=== PATIENT | female | born 1995 | race Caucasian/White ===

== ENCOUNTER 2021-11-26 16:53 | Emergency (ER) | payer OTHER, SELFPAY ==
--- NOTE | ~2021-11-26 | US_ITS ---
EXAMINATION: US PELVIS transabdominal and transvaginal CLINICAL INFORMATION: IUD placement. Pain COMPARISON: None TECHNIQUE: Ultrasound of the pelvis is performed using both transabdominal and transvaginal transducers along with Doppler. Transvaginal imaging is performed due to inadequate visualization transabdominally. FINDINGS: Uterus: The uterus is anteverted and measures 8.3 x 3.2 x 4.9 cm The double wall endometrial thickness is 0.2 mm. There is IUD in place The uterus is smooth in contour and has normal myometrial echogenicity. No visible fibroid. Adnexa: Both ovaries are visualized. There is normal color flow to the adnexa. There is no ovarian torsion. There is no pelvic ascites or fluid collection. There is simple 5.5 x 4.4 x 5.6 cm cyst in left adnexa. Right ovary measures 2.5 x 2.5 x 1.7 cm. With a volume of 5.6 mL Left ovary measures 6.1 x 5.7 x 5.1 cm. With a volume of 93 mL US/US pelvic ovarian doppler IMPRESSION: Large simple cyst in the left adnexa Well-positioned IUD
--- NOTE | ~2021-11-26 | US_ITS ---
EXAMINATION: US PELVIS transabdominal and transvaginal CLINICAL INFORMATION: IUD placement. Pain COMPARISON: None TECHNIQUE: Ultrasound of the pelvis is performed using both transabdominal and transvaginal transducers along with Doppler. Transvaginal imaging is performed due to inadequate visualization transabdominally. FINDINGS: Uterus: The uterus is anteverted and measures 8.3 x 3.2 x 4.9 cm The double wall endometrial thickness is 0.2 mm. There is IUD in place The uterus is smooth in contour and has normal myometrial echogenicity. No visible fibroid. Adnexa: Both ovaries are visualized. There is normal color flow to the adnexa. There is no ovarian torsion. There is no pelvic ascites or fluid collection. There is simple 5.5 x 4.4 x 5.6 cm cyst in left adnexa. Right ovary measures 2.5 x 2.5 x 1.7 cm. With a volume of 5.6 mL Left ovary measures 6.1 x 5.7 x 5.1 cm. With a volume of 93 mL US/US pelvic and transvaginal IMPRESSION: Large simple cyst in the left adnexa Well-positioned IUD
[2021-11-26 17:35] VITALS: BP 134/68; PULSE 90; RESP 18; TEMP 36.4; O2SAT 98; BMI 24.0
--- NOTE | 2021-11-26 22:44 | ED.FEMALEGU ---
HPI - Female Genitourinary General Chief complaint: Recheck/Abnormal Lab/Rx Stated complaint: iud strings cant be located, back pain Time Seen by Provider: 11/26/21 17:39 Source: patient Mode of arrival: ambulatory Limitations: no limitations History of Present Illness HPI Narrative: 25-year-old female presents for inability to find her IUD strings and dysparuenia. She has had this feeling of pain and pressure to the left lower abdomen. States her IUD is approximately 2 years old and has a history of IUD migration. She does not report abnormal vaginal discharge or bleeding, fevers, chills, nausea vomiting or diarrhea. MD elicited complaint: other (Painful intercourse) Pertinent past history: IUD Onset (ago): day(s) Location of symptoms: vaginal Severity: moderate Female Urogenital Radiation: Non-Radiating Severity scale (1-10): 5 Quality of pain: aching Consistency: constant Vaginal discharge: none Vaginal bleeding: none Exacerbating factors: intercourse Relieving factors: other (Pelvic rest) Associated symptoms: denies other symptoms Sexual activity: Yes Patient : No Related Data Previous Rx's Medication Instructions Recorded fluconazole 150 mg tablet 150 mg PO DAILY #1 tab 11/26/21 (Diflucan) Allergies Allergy/AdvReac Type Severity Reaction Status Date / Time No Known Allergies Allergy Verified 11/26/21 17:35 Review of Systems Review of Systems: Constitutional: No Fever, No Chills ENT/Mouth: No Ear Pain, No Hoarseness, No sore throat Eyes: No Eye Pain, No Swelling, No Redness, No Foreign Body Cardiovascular: No Chest Pain, No SOB Respiratory: No Cough, No Dyspnea Gastrointestinal: No Nausea, No Vomiting, No Diarrhea, No abdominal Pain Genitourinary: Painful intercourse, left adnexal pain, No Dysuria, No Hematuria Musculoskeletal: positive joint pain, No Myalgias, No Joint Swelling Skin: No Skin lacerations, No rash Neuro: No Weakness, No Numbness, No Paresthesias, No Loss of Consciousness, No Dizziness, No Headache Psych: No Anxiety/Panic, No Depression Heme/Lymph: no easy bruising, no Lymphadenopathy Endocrine: No Polyuria, No Polydipsia Yes all other systems are reviewed and are negative FOR[facility]LY [facility] Past Medical History Attestation statement: The following information was validated with the patient. Source: old records reviewed Social History Social History Advance Directives: No Advance Directives Information Provided: No Physical Exam Vital Signs: Vital Signs: Last Vital Signs Temp 97.6 F 11/26/21 17:35 Pulse 90 11/26/21 17:35 Resp 18 11/26/21 17:35 BP 134/68 11/26/21 17:35 Pulse Ox 98 11/26/21 17:35 O2 Del Method 11/26/21 17:35 BMI result Body Mass Index 24.0 Appearance: Alert. Oriented X3. No acute distress. Eyes: Pupils equal, round and reactive to light. ENT: Pharynx normal. Neck: Normal inspection. Neck supple. CVS: Normal heart rate and rhythm. Pulses normal. Respiratory: No respiratory distress. Breath sounds normal. Abdomen: Soft and nontender. Genitourinary: IUD strings in the cervical os, IUD removed without difficulty. White clumpy discharge consistent with candidiasis. Os nulliparous. No cervical motion tenderness or adnexal pain noted. External genitalia normal. Skin: Skin warm and dry. Normal skin color. Normal skin turgor. Extremities: No lower extremity edema. Neuro: No motor deficit. No sensory deficit. Course Course Course Narrative: 25-year-old female presents with pain with intercourse, inability to find her IUD strings, and left lower pelvic pain. Pelvic ultrasound completed while patient was in the emergency department waiting room. IUD is in place. I did discuss this finding with the patient and she would like her IUD removed because of painful intercourse. I did discuss the finding of the left adnexal cyst, she was aware that she had this from prior studies. Pelvic exam is within normal limits with the exception of vaginal discharge consistent with candidiasis. No cervical motion tenderness or adnexal tenderness on bimanual palpation. 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 IUD was removed without difficulty. Patient does understand that she has high risk for at this time. Will treat with Diflucan, repeat dose in 3 days from now. Patient agrees to follow-up with her obstetrics gyn and her tapestry as needed. Patient verbalized understanding of and agrees plan of care discharge home. Verbalized understanding of signs and symptoms indicating need for emergent intervention. MDM - Female Genitourinary MDM Narrative Medical decision making narrative: Candidiasis, IUD displacement, ovarian cyst, ectopic , Differential Diagnosis Differential diagnosis: Likely vaginitis and ruptured ovarian cyst Medical Records Attestation: I reviewed the patient's medical records. Imaging Data Pelvic ultrasound\: Attestation: I personally reviewed and interpreted this imaging study as follows: Radiologist's impression: CLINICAL INFORMATION:? IUD placement. Pain COMPARISON: None TECHNIQUE: Ultrasound of the pelvis is performed using both transabdominal and transvaginal transducers along with Doppler. Transvaginal imaging is performed due to inadequate visualization transabdominally. FINDINGS: Uterus: The uterus is anteverted and measures 8.3 x 3.2 x 4.9 cm The double wall endometrial thickness is 0.2 mm. There is IUD in place The uterus is smooth in contour and has normal myometrial echogenicity. ? No visible fibroid. Adnexa: Both ovaries are visualized. There is normal color flow to the adnexa. There is no ovarian torsion.? There is no pelvic ascites or fluid collection. There is simple 5.5 x 4.4 x 5.6 cm cyst in left adnexa. Right ovary measures 2.5 x 2.5 x 1.7 cm. With a volume of 5.6 mL Left ovary measures 6.1 x 5.7 x 5.1 cm. With a volume of 93 mL US/US pelvic and transvaginal IMPRESSION: Large simple cyst in the left adnexa Well-positioned IUD Discharge Plan Discharge Clinical Impression: Pelvic pain, Encounter for IUD removal, Candidiasis Patient Disposition: Home, Self-Care Instructions: Yeast Infection (ED), Pelvic Pain (ED), Removal of Control Implant (DC) Additional Instructions: You were evaluated for pelvic pain during intercourse. We removed your IUD without difficulty. You have a left adnexal simple cyst. Please follow-up with your obstetrics gyn. We are treating you for yeast infection. We gave you your 1st dose of Diflucan while you were in the emergency department. Please take 2nd dose in 3 days from now. Please use control and condoms to prevent as we removed your IUD. Return to the emergency department for any new, concerning, worsening symptoms. . Prescriptions: New fluconazole [Diflucan] 150 mg tablet 150 mg PO DAILY Qty: 1 0RF Rx Instructions: Take on 11/29/2021, 1st dose given on 11/26/2021 Referrals: Adilson Desai MD [Physician] - (IUD, left adnexal cyst) Interventions: ED Discharge Assessment Last Done: 11/26/21 23:36 Discharge Date/Time: 11/26/21 23:38
[2021-11-26] MEDS: Fluconazole 150 MG TABLET PO (23:35)
== END 2021-11-26 23:38 | disposition home or self-care (01) ==
PROVIDERS: Emergency Provider Internal Medicine; PCP Internal Medicine
DX: M54.50 Low back pain, unspecified (principal); R10.2 Pelvic and perineal pain; B37.3 Candidiasis of vulva and vagina; Z30.432 Encounter for removal of intrauterine contraceptive device; Z79.899 Other long term (current) drug therapy
CPT/HCPCS: 76830; 76856; 93975; 99282; 99284

== ENCOUNTER → 2021-12-23 12:02 | Outpatient (BNVA) | payer OTHER, SELFPAY | PROVIDERS: PCP Internal Medicine; Visit Provider Obstetrics & Gynecology | DX: Z32.02 Encounter for pregnancy test, result negative (principal); N83.209 Unspecified ovarian cyst, unspecified side | CPT/HCPCS: 81025 ==

== ENCOUNTER 2022-02-10 12:55 | Outpatient (REF) | payer OTHER, SELFPAY ==
--- NOTE | ~2022-02-10 | US_ITS ---
EXAMINATION: US PELVIS CLINICAL INFORMATION: Unspecified ovarian cyst, left lower quadrant pain. IUD removed 12/23/2021. COMPARISON: 11/26/2021. TECHNIQUE: Ultrasound of the pelvis is performed using both transabdominal and transvaginal transducers along with Doppler. Transvaginal imaging is performed due to inadequate visualization transabdominally. FINDINGS: The uterus is heterogeneous and measures 6.9 x 3.1 x 3.9 cm. No discrete fibroids. Nabothian cyst identified. Endometrial thickness 0.5 cm. Right ovary is unremarkable and measures 2.7 x 1.4 x 1.8 cm, volume 3.6 mL. Left ovary measures 3.4 x 1.8 x 2.2 cm, volume 7.1 mL. Left ovarian cyst measures 1.7 x 1.6 x 1.6 cm, likely simple. Previous study demonstrated 5.5 x 4.4 x 5.5 cm left adnexal cyst. US/US pelvic and transvaginal IMPRESSION: 1. Left ovarian 1.7 cm cyst, previously 5.5 cm left adnexal cyst. 2. Unremarkable right ovary. 3. No discrete fibroids. 4. No significant free fluid. 5. Endometrial thickness 0.5 cm.
== END 2022-02-10 12:56 | disposition home or self-care (01) ==
LOC: HO.US 12:55
PROVIDERS: Visit Provider Obstetrics & Gynecology
DX: N83.209 Unspecified ovarian cyst, unspecified side (principal)
CPT/HCPCS: 76830; 76856

== ENCOUNTER 2023-04-20 15:35 | Outpatient (REF) | payer OTHER, SELFPAY | END 2023-04-20 15:36 | disposition home or self-care (01) | LOC: HO.LNP 15:35 | PROVIDERS: Visit Provider Obstetrics & Gynecology | DX: Z01.419 Encounter for gynecological examination (general) (routine) without abnormal findings (principal) | CPT/HCPCS: 88142 ==

== ENCOUNTER 2023-04-20 15:35 | Outpatient (AMB) | payer OTHER, SELFPAY ==
--- NOTE | 2023-04-20 15:52 | A.OFFVIS_ITS ---
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 No complaints. 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 Sexually active: Yes Sexual orientation: Straight/Heterosexual Gender identity: Female Female Reproductive History Menstrual Age of Menarche: 10 Date of last menstrual period: 04/03/23 Total pregnancies: 0 Review of Systems Const All systems reviewed & are unremarkable except as noted in HPI and below Card Reports as per HPI Resp Reports as per HPI GI Reports as per HPI and Reports no additional complaints Reports as per HPI Physical Exam Vital Signs: BMI result Body Mass Index 22.3 Const General: cooperative, healthy appearing and comfortable Chest Chest palpation & inspection: normal inspection of the chest and normal palpation of entire chest wall Breast/axilla inspection: normal inspection of the breasts and normal inspection of the axillae Breast/axilla palpation: normal palpation of the breasts, normal palpation of the axillae and no axillary lymphadenopathy Resp Effort & Inspection: normal respiratory effort Auscultation: clear to auscultation bilaterally Percussion: percussion normal Cardio Palpation: normal PMI Rate: regular rate Rhythm: regular rhythm Heart sounds: no murmurs and no rubs Peripheral pulses: Peripheral pulses 2+ throughout GI Inspection: Yes normal to inspection Palpation (GI): Soft to palpation, nontender, no guarding, not rigid and No hepatosplenomegaly present Percussion: Yes normal to percussion Auscultation: normal bowel sounds Rectal Exam - Female: deferred General: Yes bladder normal to palpation External Female Exam: No lesion Speculum Exam - Vagina: normal appearance of the vagina, normal palpation, normal vaginal discharge and not erythematous Speculum Exam - Cervix: normal appearance of the cervix and normal palpation Bimanual exam- vagina & uterus: normal bimanual exam, normal palpation, uterine size normal, bladder normal to palpation, consistency normal and normal palpation Bimanual Exam- Adnexa, other: normal adnexae, no masses and no tenderness Assessment & Plan Assessment & Plan (1) Well woman exam: Code(s): Z01.419 - Encounter for gynecological examination (general) (routine) without abnormal findings Plan: Pap smear taken. Counseled the patient about the recommended dietary allowance of 1000 mg of C alcium & 600 IU of vitamin D. The patient was instructed to perform monthly self-breast exams , to call for any changes in menstrual patterns and to schedule an annual exam in a year; all questions answered and the patient verbalized understanding. Coding Level of Care Code Est Pt Prev Care 18-39y(39948) Diagnoses Well woman exam Z01.419
[2023-04-20 15:54] VITALS: BP 88/58; BMI 22.3
== END 2023-04-20 16:08 | disposition home or self-care (01) ==
PROVIDERS: PCP Internal Medicine; Visit Provider Obstetrics & Gynecology
DX: Z01.419 Encounter for gynecological examination (general) (routine) without abnormal findings (principal)
CPT/HCPCS: 99395

== ENCOUNTER 2024-07-04 09:34 | Outpatient (AMB) | payer OTHER, SELFPAY ==
[2024-07-04 10:28] VITALS: BP 100/66; PULSE 88; RESP 20; TEMP 37; O2SAT 99; BMI 22.8
--- NOTE | 2024-07-04 10:28 | AM.OFFWIN_ITS ---
Intake Vital Signs 07/04/24 10:28 Height 5 ft Weight 117 lb BMI 22.8 BP 100/66 Blood Pressure Location Lt brachial Position Sitting Respiration 20 Pulse 88 Pulse Source Pulse Oximeter Temp 98.6 F Temp Source Oral Pulse Oximetry (%) 99 Oxygen Delivery Method Room Air Intake Visit Reasons: EP Flu symptoms Intake Note: Pt is here today for a walk in visit. Pt c/o body aches, cough, chills, fever no appetite. Patient Tobacco Use Status: Current someday Tobacco user Allergies No Known Allergies [No Known Allergies*] Allergy (Unverified 07/04/24 10:32) Do you need a note to return to daycare/school/sports/work: Yes HPI HPI Comments History of Present Illness Details History - The patient is a 28-year-old female pr esenting with suspected influenza. - Symptoms started on Wednesday, with a n otable fever that initially reached 101.7?F, controlled with Tylenol. Sweating in the extremities persists in the absence of fever. - Gastrointestinal tolerance is limited; Gatorade is retained, but water induces vomiting. - The patient experienced one bowel move ment today, with noted constipation since illness onset. - The patient reports a cough that somet imes yields sputum, worsened in a supine position. - no wheezing or shortness of breath not ed. - Only minor nasal congestion noted with out other upper respiratory symptoms. - The patient did not receive an influen za vaccine this year, marking the first suspected influenza bout since middle school. - The illness began approximately 72 sully rs prior, when the patient also started feeling systemic symptoms. Physical Exam General: Cooperative, healthy appearing, comfortable and no acute distress Orientation/consciousness: Patient oriented x3 Limitations: No limitations Head: Normal to inspection Ears: Hearing grossly normal bilaterally, external ears normal and TM's normal bilaterally Nose: Normal external nose present, Normal nares present and No nasal discharge present Face and sinus: Normal facial exam and Yes sinuses nontender Mouth: Normal oral and palatal mucosa present and moist mucous membranes Throat: Yes tonsils normal, Yes uvula midline. Posterior oropharynx erythema Eyes: Appearance normal, both eyes and all related structures Neck: Normal visual inspection Respiratory: Clear to auscultation bilaterally. Normal respiratory effort, able to speak in complete sentences, Actively coughing, no respiratory distress, not tachypneic, no tripod positioning and no use of accessory muscles Cardiovascular: Regular rate and rhythm. Normal S1 and S2 Skin: No rashes or lesions noted Neuro: Patient oriented x3 Extremities: Normal to inspection and Yes no clubbing, cyanosis or edema, but legs appear discolored than normal PFSH Family History Maternal Grandmother Breast CA Social History (Updated 04/20/23 @ 15:57 by Pati Robledo CMA) Household Members: None Housing: House Alcohol intake: current Alcohol intake frequency: holidays/special occasions only Patient Tobacco Use Status: Current someday Tobacco user Tobacco use type: Cigarette Cigarettes Per Day: 1 Substance Use Type: Marijuana Current occupational status: employed 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 Flu, Covid and RSV testing sent. The likely diagnosis in this case is influenza, as indicated by the presented symptoms and absence of vaccination this season. Given the timing of the symptom onset and the nature of oseltamivir?s side effects, it was recommended to focus on hydration and relief of symptoms, rather than antiviral treatment. The patient was instructed to maintain adequate hydration with electrolyte fluids and consume a bland diet consistent with the BRAT regimen. Documentation for work leave was arranged, depending on test outcomes. Further management will hinge on test results. Patient was informed and verbally consented to the use of an ambient scribe for clinic note documentation during this visit Orders: Orders SARS-CoV2/FLU/RSV Today R09.89 - Other specified symptoms and signs involving the circulatory and respiratory systems Coding Level of Care Code New Pt Level 3 (04647) Diagnoses Influenza-like illness J11.1
--- OUTSIDE RECORDS SUMMARY | 2024-07-04 10:43 | XMS_ITS | Data Portability ---
Author Organization [facility], [address] Address [address] [place] [id number] Assessment No assessment recorded. Plan of Treatment Reminders Order Date Submit Date Provider Last Modified By Organization Details Last Modified Time Details Appointments None recorded. Lab None recorded. Referral None recorded. Procedures None recorded. Surgeries None recorded. Imaging XR, sacrum + coccyx, 2 or more view 2022 023 [email or web address] [facility], [address] [place], [address], 3 17:07:02 XR, sacrum + coccyx, 2 or more view 2022 023 [email or web address] [facility], [address] [place], [address], 3 17:07:02 Medication Orders ibuprofen 800 mg tablet 2022 023 [email or web address] [facility] #[id number], [address] [facility] [place], [address], 3 17:05:32 Patient TargetsNo targets recorded. Patient Instructions Encounter Date Encounter Id Patient Instructions Last Modified By Organization Details Last Modified Time 05/25/2022 [id number] getting back to normal after low back pain: care instructions denis Not available 05/25/2022 16:27:16 - Patient was informed of coccydynia. - Discussed about avoiding to sit on hard surfaces. patient was provided with a prescription of anti-inflammatory , muscle relaxants along with pain medication. - Indications, contraindications and precautions were discussed with the patient patient has been educated about follow-up to ensure complete resolution. - Discussed about indications of UC/ ED visit. - Conservative and home management was discussed. - Advised about application of ice. lorenzoErick Not available 05/25/2022 16:49:31 Reason for Referral None Reported. Results Created Date Observation Date Name Description Value Unit Range Abnormal Flag Note LastModifiedBy Organization Detail LastModifiedTime 05/25/19 23 05/25/2022 XR, sacru m + coccy x, 2 or more view No observ ation record ed. [email or web address] [facility] [address] [place], [address], 05/25/2022 23:54:34 05/25/19 23 05/25/2022 XR, sacru m + coccy x, 2 or more view No observ ation record ed. [facility] [address] [place], [address], 05/25/2022 23:54:35 Result Notes None recorded. Problems No Known Problems Procedures Surgical History None recorded. Imaging Results Imaging Date Name Status LastModified by [facility] Details LastModified Time 05/25/2022 XR, sacrum + coccyx, 2 or more view completed [email or web address] [facility] [address] [place], [address], 05/25/2022 23:54:34 05/25/2022 XR, sacrum + coccyx, 2 or more view completed [email or web address] [facility] [address] [place], [address], 05/25/2022 23:54:35 Procedure Notes None recorded. Medical Equipment None Reported. Allergies No known drug allergies Medications Name Sig Start Date Stop Date Status Note LastModified by Organization Details LastModified Time ibuprofen 800 mg tablet Take 1 tablet 3 times a day by oral route with meals for 7 days. 2022 active Not Available Not Available Not Avai lable fluconazole 150 mg tablet TAKE 1 TABLET BY MOUTH ONCE FOR 1 DOSE ON 022. 05/25 completed Not Available Not Available Not Available Vitals Date Recorded Body height Body mass index (BMI) Body weight Body temperature Respiratory rate Oxygen saturation Oxygen saturation in Arterial blood by Pulse oximetry Heart rate Systolic blood pressure Diastolic blood pressure Provider Name and Address Organization Details Last Updated DateTime 3 152.4 cm 24.4 kg/m2 05050.0 5 g 97.9 [degF] 18 /min 99 % 99 % 77 /min 114 mm[Hg] 71 mm[Hg] XAVI Alexander [facility] 16:13:13 Social History Question Answer Notes LastModified by Ad Dynamoizat ion Details LastModified Time Tobacco Smoking Status Never Smoker [facility] 05/25/2022 16:11:44 What Is Your Level Of Alcohol Consumption? Occasional Information not available 05/25/2022 Are You Currently Employed? Yes Information not available 05/25/2022 Which Illicit Or Recreational Drugs Have You Used? Marijuana Information not available 05/25/2022 Have You Had Direct Contact, Or Contact During Intimacy, With Monkeypox Rash, Scabs, Or Body Fluids From A Person With Monkeypox? No Information not available 05/25/2022 Do You Use Any Illicit Or Recreational Drugs? Yes Information not available 05/25/2022 Have You Recently Traveled Abroad? No Information not available 05/25/2022 Are You Currently In School? No Information not available 05/25/2022 Sex: Unknown Functional Status None recorded. Mental Status None recorded. Family History Relationship Description Onset Age of this Age Resolved Age Notes LastModified by Organization Details LastModified Time Unspecified Relation Heart disease Not available 05/25 16:11:32 Medical History No medical history recorded. Gynecological HistoryNo gynecological history recorded. Obstetrics History GPAL:G 0 P 0 0 0 0 Immunizations Vaccine Type Date Status Note Provider Nam e and Address Organization Details Recorded Time Tdap 01/02/2016 [facility] 05/25/2022 16:11:06 Influenza, MDCK, quadrivalent, PF 05/25/2018 completed XAVI hlyton [place] - [facility] 05/25/2022 16:11:06 Past Encounters Encounter ID Performer Location Encounter Start Date Encounter Closed Date Diagnosis/Indication Diagnosis SNOMED-CT Code Diagnosis ICD10 Code Diagnosis Note [id number] [place] Zendejas [place] [address] [address] 05/25/2022 15:36:45 05/25/2022 17:07:02 Contusion of lower back 809712689 S30.0XXA Health Concerns Section Related Observation LastModified by Organization Detai ls LastModified Time None Recorded Concern Status LastModified by Organization Details LastModified Time None Recorded Advance Directives Directive None Recorded Payers Encounter Date Sequence Insurance Name Policy Number Policy Vizcarra Covered Member ID Vizcarra Member ID Guarantor Name 05/25/[address] [place] [address] [id number] Ashly Strange [id number] Ashly Strange Notes Date Note Type Note Provider Name and Address Organization Details Recorded Time 05/25/2022 text/html Back Pain/Injury UCReported bypatient.Notes:H ad a hard fall yesterday snow boarding on her buttocks . now painful to sit . hurts at the tailbone. Blair Zendejas NP [address] [place], [address], [place] - [facility] 05/25/2022 17:06:31 OBGyn Episode No OBEpisode recorded.
== END 2024-07-04 10:58 | disposition home or self-care (01) ==
PROVIDERS: PCP Internal Medicine; Visit Provider Physician Assistant
DX: J11.1 Influenza due to unidentified influenza virus with other respiratory manifestations (principal)

== ENCOUNTER 2024-07-04 09:34 | Outpatient (REF) | payer OTHER, SELFPAY ==
[2024-07-04 14:55] LABS: Influenza A PCR POSITIVE (Negative); Influenza B PCR NEGATIVE (Negative); Resp Syncy Virus RNA Qual PCR NEGATIVE (Negative); SARS COV2 PCR INHOUSE NEGATIVE (Negative)
== END 2024-07-04 09:35 | disposition home or self-care (01) ==
LOC: HO.LAB 09:34
PROVIDERS: PCP Internal Medicine; Visit Provider Physician Assistant
DX: J11.1 Influenza due to unidentified influenza virus with other respiratory manifestations (principal); R09.89 Other specified symptoms and signs involving the circulatory and respiratory systems
CPT/HCPCS: 0241U

== ENCOUNTER 2024-07-11 09:14 | Outpatient (AMB) | payer OTHER, SELFPAY ==
--- NOTE | 2024-07-11 09:21 | A.OFFVIS_ITS ---
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 No complaints. 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 Sexual orientation: Straight/Heterosexual Gender identity: Female Female Reproductive History Menstrual Age of Menarche: 10 Duration of menses: 3-5 days Date of last menstrual period: 06/13/24 Total pregnancies: 0 Date of last pap smear: 04/20/23 (negative pap smear) History of abnormal pap smear: No Review of Systems Const All systems reviewed & are unremarkable except as noted in HPI and below Card Reports as per HPI Resp Reports as per HPI GI Reports as per HPI and Reports no additional complaints Reports as per HPI Physical Exam Vital Signs: Last Vital Signs BP 102/68 07/11/24 09:27 BMI result Body Mass Index 22.8 Const General: cooperative, healthy appearing and comfortable Chest Chest palpation & inspection: normal inspection of the chest and normal palpation of entire chest wall Breast/axilla inspection: normal inspection of the breasts and normal inspection of the axillae Breast/axilla palpation: normal palpation of the breasts, normal palpation of the axillae and no axillary lymphadenopathy Resp Effort & Inspection: normal respiratory effort Auscultation: clear to auscultation bilaterally Percussion: percussion normal Cardio Palpation: normal PMI Rate: regular rate Rhythm: regular rhythm Heart sounds: no murmurs and no rubs Peripheral pulses: Peripheral pulses 2+ throughout GI Inspection: Yes normal to inspection Palpation (GI): Soft to palpation, nontender, no guarding, not rigid and No hepatosplenomegaly present Percussion: Yes normal to percussion Auscultation: normal bowel sounds Rectal Exam - Female: deferred General: Yes bladder normal to palpation External Female Exam: No lesion Speculum Exam - Vagina: normal appearance of the vagina, normal palpation, normal vaginal discharge and not erythematous Speculum Exam - Cervix: normal appearance of the cervix and normal palpation Bimanual exam- vagina & uterus: normal bimanual exam, normal palpation, uterine size normal, bladder normal to palpation, consistency normal and normal palpation Bimanual Exam- Adnexa, other: normal adnexae, no masses and no tenderness Assessment & Plan Assessment & Plan (1) Well woman exam: Code(s): Z01.419 - Encounter for gynecological examination (general) (routine) without abnormal findings Category: Medical Plan: Pap smear not indicated this year. Counseled the patient about the recommended dietary allowance of 1000 mg of Calcium & 600 IU of vitamin D. The patient was instructed to perform monthly self-breast exams and to schedule an annual exam in a year; All questions answered and the patient verbalized understanding. Instructed the patient to schedule annual exam in a year Coding Level of Care Code Est Pt Level 3 (76153) Est Pt Prev Care 18-39y(71902) Diagnoses Well woman exam Z01.419
[2024-07-11 09:27] VITALS: BP 102/68; BMI 22.8
--- OUTSIDE RECORDS SUMMARY | 2024-07-11 10:10 | XMS_ITS | Data Portability ---
Author Organization [facility], [address] Address [address] [place] [phone] Assessment No assessment recorded. Plan of Treatment Reminders Order Date Submit Date Provider Last Modified By Organization Details Last Modified Time Details Appointments None recorded. Lab None recorded. Referral None recorded. Procedures None recorded. Surgeries None recorded. Imaging XR, sacrum + coccyx, 2 or more view 2022 023 [email or web address] [facility], [address] [place], [address], 3 17:07:02 XR, sacrum + coccyx, 2 or more view 2022 023 [email or web address] [facility], [address] [place], [address], 3 17:07:02 Medication Orders ibuprofen 800 mg tablet 2022 023 [email or web address] [facility]acy #[id number], [address] [facility] [place], [address], 3 17:05:32 Patient TargetsNo targets recorded. Patient Instructions Encounter Date Encounter Id Patient Instructions Last Modified By Organization Details Last Modified Time 05/25/2022 [id number] getting back to normal after low back [...] record ed. [facility] [address] [place], [address], 05/25/2022 23:54:34 05/25/19 23 05/25/2022 XR, sacru m + coccy x, 2 or more view No observ ation record ed. [email or web address] [facility] [address] [place], [address], 05/25/2022 23:54:35 Result Notes None recorded. Problems No Known Problems Procedures Surgical History None recorded. Imaging Results Imaging Date Name Status LastModified by [facility] Details LastModified Time 05/25/2022 XR, sacrum + coccyx, 2 or more view completed [email or web address] [facility] [address] [place], [address], 05/25/2022 23:54:34 05/25/2022 XR, sacrum + coccyx, 2 or more view completed [facility] [address] [place], [address], 05/25/2022 23:54:35 Procedure Notes None recorded. Medical [...] Updated DateTime 3 152.4 cm 24.4 kg/m2 98957.0 5 g 97.9 [degF] 18 /min 99 % 99 % 77 /min 114 mm[Hg] 71 mm[Hg] XAVI Alexander [facility] 16:13:13 Social History Question Answer Notes LastModified by [employer] Details LastModified Time Tobacco Smoking Status [...] Influenza, MDCK, quadrivalent, PF 05/25/2018 completed XAVI hylton [place] - [facility] 05/25/2022 16:11:06 Past Encounters Encounter ID Performer Location Encounter Start Date Encounter Closed Date Diagnosis/Indication Diagnosis SNOMED-CT Code Diagnosis ICD10 Code Diagnosis Note [id number] Blair Zendejas NP [address] [address] 05/25/2022 15:36:45 05/25/2022 17:07:02 Contusion of lower back [id number] S30.0XXA Health Concerns Section Related Observation LastModified by Organization Detai ls LastModified Time None Recorded Concern Status LastModified by Organization Details LastModified Time None Recorded Advance Directives Directive None Recorded Payers Encounter Date Sequence Insurance Name Policy Number Policy Vizcarra Covered Member ID Vizcarra Member ID Guarantor Name 05/25/[address] [place] [address] [id number] Ashly Strange [id number] Ashly Strange Notes Date Note Type Note Provider Name and Address Organization Details Recorded Time 05/25/2022 text/html Back Pain/Injury UCReported bypatient.Notes:H ad a hard fall yesterday snow boarding on her buttocks . now painful to sit . hurts at the tailbone. Blair Zendejas NP [address] [place], [address], [place] - [facility] 05/25/2022 17:06:31 OBGyn Episode No OBEpisode recorded.
== END 2024-07-11 10:03 | disposition home or self-care (01) ==
LOC: HO.HWS 09:14
PROVIDERS: PCP Internal Medicine; Visit Provider Obstetrics & Gynecology
DX: Z01.419 Encounter for gynecological examination (general) (routine) without abnormal findings (principal)
CPT/HCPCS: 99395; 99459

== ENCOUNTER → 2024-07-11 09:14 | Outpatient (BNVA) | payer OTHER, SELFPAY | PROVIDERS: PCP Internal Medicine; Visit Provider Obstetrics & Gynecology ==

== ENCOUNTER 2025-03-29 15:06 | Emergency (ER) | payer OTHER, SELFPAY ==
--- NOTE | ~2025-03-29 | XR_ITS ---
EXAMINATION: XR CHEST CLINICAL INFORMATION: left rib/chest pain pluerisy COMPARISON: None available. TECHNIQUE: PA and lateral views FINDINGS: Hyperinflation. No consolidation, pleural effusion or pneumothorax. Cardiomediastinal silhouette size is normal. Osseous structures are intact.. Mild S-shaped curvature of the upper thoracic spine. XR/XR chest 2V IMPRESSION: No acute airspace disease. Electronically signed by: Derian Rivera MD 03/29/2025 03:50 PM EST
[2025-03-29 15:08] VITALS: BP 143/72; PULSE 85; RESP 20; TEMP 36.4; O2SAT 100; BMI 24.2
--- NOTE | 2025-03-29 15:11 | ECG_ITS ---
Test Reason : cp Blood Pressure : */* mmHG Vent. Rate : 73 BPM Atrial Rate : 73 BPM P-R Int : 156 ms QRS Dur : 74 ms QT Int : 390 ms P-R-T Axes : 79 74 61 degrees QTcB Int : 429 ms Normal sinus rhythm Normal ECG No previous ECGs available Referred By: Malcolm Cota Electronically Signed By: EM FORTUNE
--- NOTE | 2025-03-29 15:14 | ED_ITS ---
HPI - General Adult General Chief complaint: Back Pain/Injury Stated complaint: Back Pain Time Seen by Provider: 03/29/25 16:25 Source: patient Mode of arrival: ambulatory Limitations: no limitations History of Present Illness ED Provider: Malcolm Cota HPI narrative: 29 yold female healthy presents to the ED for left chest/rib/torso pain that is worse on movememnt ever since doing an awkard movement yesterday. patient states she was walkinhg her dog and the dog ran fast and pulled patient which caused awkward movememnt. Patient denies any control use, leg swelling, calf pain, coughing up blood, recent travel, recent trauma recent surgery Related Data Previous Rx's ?Medication ?Instructions ?Recorded cyclobenzaprine 10 mg tablet 10 mg PO BEDTIME PRN musc le spasm 03/29/25 #10 tabs naproxen 500 mg tablet 500 mg PO BID PRN pain #14 t abs 03/29/25 Allergies Allergy/AdvReac Type Severity Reaction Status Date / Time No Known Allergies (No Known Allergy Verified 03/29/25 15:12 Allergies*) Review of Systems 2 Review of Systems: Left rib left chest pain that is worse on movement Yes all other systems are reviewed and are negative [facility] Family History Family History Maternal Grandmother Breast CA Social History Social History Household Members: None Housing: House Alcohol intake: current Alcohol intake frequency: holidays/special occasions only Patient Tobacco Use Status: Current someday Tobacco user Tobacco use type: Cigarette Cigarettes Per Day: 1 Substance Use Type: Marijuana Advance Directives: No Advance Directives Information Provided: No Do you have a plan to hurt others: No Plan Current occupational status: employed 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 Sexual orientation: Straight/Heterosexual Gender identity: Female Physical Exam ED Vital Signs: Vital Signs - 24 hr 03/29/25 15:08 Temperature 97.5 F Pulse Rate 85 Respiratory Rate 20 Blood Pressure 143/72 H Pulse Oximetry 100 Oxygen Delivery Method Room Air BMI result Body Mass Index 24.2 Const General: cooperative, healthy appearing, comfortable, no acute distress, well developed, alert, awake and Physically active Orientation/consciousness: patient oriented x3 HENMT Head: Yes normal to inspection, Yes No palpable skull fracture present, Yes normocephalic and Yes atraumatic Eyes General: appearance normal, both eyes and all related structures Neck Neck: Yes normal visual inspection, Yes no lymphadenopathy, Yes no meningeal signs, Yes trachea midline, Yes supple, No anterior neck swelling and No tender Chest Chest palpation & inspection: normal inspection of the chest Chest/axillae images: 2 1. Positive for tenderness on palpation. Positive for pain on range of motion of upper extremity and left upper torso. Negative for ecchymosis, rash, erythema, deformity, lesions, nipple discharge, breast mass, breast swelling, breasts redness, or lymphadenopathy. 2. Positive for tenderness on palpation. Positive for pain on range of motion of upper extremity and left upper torso. Negative for ecchymosis, rash, erythema, deformity, lesions, nipple discharge, breast mass, breast swelling, breasts redness, or lymphadenopathy. 3. Positive for tenderness on palpation. Positive for pain on range of motion of upper extremity and left upper torso. Negative for ecchymosis, rash, erythema, deformity, lesions, nipple discharge, breast mass, breast swelling, breasts redness, or lymphadenopathy. Resp Effort & Inspection: normal respiratory effort and able to speak in complete sentences Auscultation: clear to auscultation bilaterally Cardio Jugular venous distension: no JVD Heart sounds: S1 normal heart sound present and S2 normal heart sound present GI Inspection: Yes normal to inspection Palpation (GI): Soft to palpation, not firm, nontender, no guarding and not rigid General: Yes no CVA tenderness Back/Spine/Pelvis Back: no CVA tenderness and No back tenderness Skin General skin exam: no rashes or lesions noted, elasticity normal and turgor normal Neuro General: patient oriented x3, gait normal, tone normal, moves all extremities, Normal light touch and pain sensation, no meningeal signs, no focal motor deficits, CN's II-XI intact bilaterally and normal sensation to monofilament Extrem General: Yes normal to inspection, Yes full ROM and Yes capillary refill normal Psych Appearance: grossly normal, well kempt and not disheveled Course Course Course Narrative: RME: 29-year-old female presents to ED for left upper rib pain since yesterday with pleurisy in the worse on movement. Patient states pain was exacerbated or walking her dog who moved when caused patient to twist awkwardly exacerbating the left rib pain. Patient denies any breast swelling, nipple discharge, recent long travel, recent surgery history of blood clots. Labs ordered Medical Decision Making Medical Decision Making [facility] Narrative: 29-year-old female presents to ED for left rib chest back pain that is worse on movement since yesterday due to dog pulling her while walking caused her to move awkwardly of left torso. Due to pleurisy D-dimer was sent which was negative. Perc score is 0. EKG nondiagnostic. Troponin negative. Heart score is 0. Not suspecting PE, NC, CHF, pericarditis, myocarditis, pneumothorax, thorax, or any other life threat etiology. Patient explained worrisome signs informed return to the ED immediately Differential Diagnosis Differential Diagnoses: The differential diagnosis associated with the presentation includes (PE, Pneumothorax, muscple strain, constchondiritis) Admission/Observation Consideration of admission/observation: Escalation of care including admission/observation considered Lab Data [facility] Lab Attestation statement: I reviewed the patient's lab results. 03/29/25 15:30 03/29/25 15:30 Labs: Lab Results 03/29/25 Range/Units 15:30 WBC 8.8 (4.8-10.8) X10*3/uL RBC 4.67 (4.20-5.50) X10*6/uL Hgb 13.6 (12.0-16.0) g/dl Hct 40.9 (37.0-47.0) % MCV 87.6 (80.0-98.0) fL MCH 29.1 (27.0-33.0) pg MCHC 33.3 (31.0-35.0) g/dl RDW 12.4 (11.0-16.0) % Plt Count 309 (160-400) X10*3/uL MPV 10.3 (9.4-12.3) fL Immature Gran % (Auto) 0.2 (0.0-0.4) % Neut % (Auto) 62.7 (45-73) % Lymph % (Auto) 29.2 (20-40) % [place] % (Auto) 6.2 (2-11) % Eos % (Auto) 1.1 (0-4) % Baso % (Auto) 0.6 (0-2) % Lymph # (Auto) 2.6 (1.2-4.9) X10*3/uL [place] # (Auto) 0.6 (0.1-1.2) X10*3/uL Eos # (Auto) 0.1 (0.0-0.4) X10*3/uL Baso # (Auto) 0.1 (0.0-0.2) X10*3/uL Abs Immat Gran (auto) 0.02 (0.00-0.03) X10*3/uL Absolute Neuts (auto) 5.5 (2.0-8.3) x10*3/uL Absolute Nucleated RBC 0.000 (0.0-0.012) X10*3/uL Nucleated RBC % (auto) 0.0 (0.0-0.2) /100WBC PT 11.9 (11.2-13.5) SEC INR 1.0 (0.9-1.1) APTT 31.7 (26.7-34.1) SEC D-Dimer High Sensitivty < 150 NG/ML Sodium 141 (135-145) mmol/L Potassium 3.4 (3.3-5.1) mmol/L Chloride 107 (96-108) mmol/L Carbon Dioxide 25 (22-29) mmol/L Anion Gap 12 (12-20) BUN 8 L (9-16) mg/dL Creatinine 0.74 (0.5-1.4) mg/dL Estim Creat Clear Calc 87.3 Estimated GFR > 60 Random Glucose 117 H (60-115) mg/dL Calcium 9.6 (8.4-10.2) mg/dL Total Bilirubin 0.4 (0.0-1.0) mg/dL AST 21 (5-31) U/L ALT 13 (0-31) U/L Alkaline Phosphatase 46 (39-117) U/L Troponin I High Sens < 2.7 (<3.5-17.0) ng/L Total Protein 7.0 (6.5-8.0) g/dL Albumin 4.7 (3.5-5.0) g/dL Beta HCG, Quant < 2 mIU/mL Urine Color Yellow Urine Appearance Clear Urine pH 6.5 (5.0-9.0) Ur Specific [place] <= 1.005 (1.005-1.025) Urine Protein Negative (Neg-Trace) mg/dL Urine Glucose (UA) Negative (Negative) mg/dL Urine Ketones Negative (Negative) mg/dL Urine Blood Negative (Negative) Urine Nitrite Negative (Negative) Ur Leukocyte Esterase Negative (Negative) Independent Interpretation I performed an independent interpretation of an: EKG (non diagnostic) and Plain X-Ray Radiology Impression Discussion of test interpretation with radiology: I have reviewed the radiologist's reading. Independent Historian Clinical information obtained from an independent historian. History obtained from or confirmed by: Other (patient) Prescription Management I considered prescription management with: Pain Medication Discharge Plan Discharge Clinical Impression: Chest wall pain, Muscle strain Patient Disposition: Home, Self-Care Instructions: Chest Pain (ED), Muscle Strain (ED), Chest Wall Pain (ED) Additional Instructions: Your EKG blood work x-ray came back reassuring. Recommend follow up with primary care provider. Return to the ED immediately for any leg swelling, calf pain, coughing up blood, chest pain/shortness of breath on inspiration or movement, weakness, dizziness, breast swelling, nipple discharge, redness, or any other concerning symptoms. Prescriptions: New naproxen 500 mg tablet 500 mg PO BID PRN (Reason: pain) Qty: 14 0RF cyclobenzaprine 10 mg tablet 10 mg PO BEDTIME PRN (Reason: muscle spasm) Qty: 10 0RF Rx Instructions: side effect is drowsiness. Do not take at work or while driving. Stand Alone Forms: Work/School Release Interventions: ED Discharge Assessment Last Done: 03/29/25 17:20 Discharge Date/Time: 03/29/25 17:22 Print Language: Greenlandic
[2025-03-29 15:37] LABS: MANUAL DIFF FLAG NO
[2025-03-29 15:39] LABS: Hematocrit 40.9 % (37.0-47.0); Hemoglobin 13.6 g/dl (12.0-16.0); Imm Gran Pct Auto 0.2 % (0.0-0.4); Mean Corpuscular HGB Conc 33.3 g/dl (31.0-35.0); Mean Corpuscular Hemoglobin 29.1 pg (27.0-33.0); Mean Corpuscular Volume 87.6 fL (80.0-98.0); Platelet Count 309 X10*3/uL (160-400); Red Blood Count 4.67 X10*6/uL (4.20-5.50); White Blood Count 8.8 X10*3/uL (4.8-10.8)
[2025-03-29 15:40] LABS: Imm Gran Abs Auto 0.02 X10*3/uL (0.00-0.03); Lymphocytes Absolute Auto 2.6 X10*3/uL (1.2-4.9); NRBC Abs Auto 0.000 X10*3/uL (0.0-0.012); NRBC Pct Auto 0.0 /100WBC (0.0-0.2)
[2025-03-29 15:41] LABS: Appearance Urine Clear; Glucose Urine UA Negative (Negative); PH 6.5 (5.0-9.0); Specific Gravity - Urine <= 1.005 (1.005-1.025)
[2025-03-29 15:46] LABS: INTERNATIONAL NORM RATIO 1.0 (0.9-1.1); Prothrombin Time 11.9 SEC (11.2-13.5)
[2025-03-29 15:49] LABS: Partial Thromboplastin Time 31.7 SEC (26.7-34.1)
[2025-03-29 16:05] LABS: Alanine Aminotransferase 13 U/L (0-31); Albumin Level 4.7 g/dL (3.5-5.0); Alkaline Phosphatase 46 U/L (39-117); Anion Gap 12 (12-20); Aspartate Amino Transferase 21 U/L (5-31); Blood Urea Nitrogen 8 mg/dL (9-16); Calcium 9.6 mg/dL (8.4-10.2); Carbon Dioxide 25 mmol/L (22-29); Chloride 107 mmol/L (96-108); Creatinine Clr Calc Pharmacy 87.3; Estimated Glomerular Filt Rate > 60; Potassium 3.4 mmol/L (3.3-5.1); Sodium 141 mmol/L (135-145); Total Protein 7.0 g/dL (6.5-8.0)
[2025-03-29 16:06] LABS: Troponin-I High Sensitivity < 2.7 ng/L (<3.5-17.0)
[2025-03-29 16:09] LABS: D Dimer High Sensitivity < 150 NG/ML
[2025-03-29 17:20] VITALS: BP 117/77; PULSE 88; RESP 18; TEMP -17.7; TEMP 0; O2SAT 99
== END 2025-03-29 17:22 | disposition home or self-care (01) ==
LOC: HO.ED 17:22
PROVIDERS: Physician Assistant; Emergency Provider Emergency Medicine
DX: S29.011A Strain of muscle and tendon of front wall of thorax, initial encounter (principal); Y93.K1 Activity, walking an animal; Y93.9 Activity, unspecified; Y92.9 Unspecified place or not applicable; Y99.9 Unspecified external cause status; R07.9 Chest pain, unspecified
CPT/HCPCS: 36415; 71046; 80053; 81003; 84484; 84702; 85025; 85379; 85610; 85730; 93005; 99283

== ENCOUNTER → 2025-03-29 15:11 | Outpatient (BNV) | payer OTHER, SELFPAY | PROVIDERS: Visit Provider Radiology Diagnostic Radiology | DX: R07.89 Other chest pain (principal) | CPT/HCPCS: 71046 ==

== ENCOUNTER → 2025-03-29 15:11 | Outpatient (BNV) | payer OTHER, SELFPAY | PROVIDERS: Emergency Provider Emergency Medicine; Visit Provider Internal Medicine | DX: R07.9 Chest pain, unspecified (principal) | CPT/HCPCS: 93010 ==